=== PATIENT | female | born 1950 | race Caucasian/White ===

== ENCOUNTER → 2018-03-19 | Outpatient (CLI) | payer MEDICARE, OTHER ==
[2018-03-15 15:54] VITALS: BMI 27.5
[2018-03-19 12:04] VITALS: BP 196/89; PULSE 69; RESP 16
--- NOTE | 2018-03-19 12:58 | P.PAINCN ---
History of Present Illness - Reason for Consult Consult date: 03/19/18 Cervical radiofrequency ablation - Chief Complaint Neck pain - History of Present Illness Carina 67-year-old female who presents today as a new patient consult. She is presents today for evaluation for radiofrequency ablation of the cervical spine. She was sent here from another pain management physician after performing the cervical medial branch blocks. She has a history of cardiac dysfunction and has a pacemaker in place so they would prefer her having the procedure done in the hospital. She reports that she had medial branch blocks 2 with excellent relief of her neck and upper shoulder pain. She reports that her pain is worse with extension and flexion of the cervical spine as well as lateral sidebending. She denies any radicular symptoms going down her arms. She denies any weakness in her arms. She denies any numbness or tingling in her fingers. She also complains of lower lumbar spine pain. She's had this lumbar pain for many years. She's had back surgery in the past. She has continued pain in her lumbar spine with all ranges of motion. She denies any radicular symptoms going down the legs, she denies any red flag symptoms. She is on anticoagulation and has stopped the anticoagulation successfully multiple times for procedures on her lumbar and cervical spine. Review of Systems 12 point review of systems is done and is negative except as noted in the HPI Past Medical History Past Medical History: Atrial Fibrillation, Diabetes Mellitus, Myocardial Infarction (CA), Osteoarthritis (OA) Additional Past Medical History / Comment(s): chronic neck and back pain radiates suzie shoulders and arms,headaches,steroids Feb 2018 Last Myocardial Infarction Date:: unk History of Any Multi-Drug Resistant Organisms: None Reported Past Surgical History: Back Surgery, Heart Catheterization With Stent, Joint Replacement, Pacemaker Additional Past Surgical History / Comment(s): RIGHT KNEE replacement,pain procedures Past Anesthesia/Blood Transfusion Reactions: Postoperative Nausea & Vomiting ( PONV) Date of Last Stent Placement:: 2001 Type of Cardiac Device: Permanent Pacemaker Device Placement Date:: 2014 or 2015 Past Psychological History: Anxiety Additional Psychological History / Comment(s): R/T FAMILY STESSORS AT THIS TIME Smoking Status: Former smoker Past Alcohol Use History: None Reported Additional Past Alcohol Use History / Comment(s): QUIT SMOKING 1994, STARTED SMOKING 1973 Past Drug Use History: None Reported - Past Family History Sister(s) Family Medical History: Myocardial Infarction (CA) Mother Family Medical History: Cancer, Hypertension Brother(s) Family Medical History: Cancer, Myocardial Infarction (CA) Additional Family Medical History / Comment(s): CABG Father Family Medical History: AICD/Pacemaker Medications and Allergies Home Medications Medication Instructions Recorded Confirmed Type Atorvastatin Calcium [Lipitor] 40 mg PO DAILY 09/12/14 03/15/18 History Enalapril [Vasotec] 5 mg PO DAILY 09/12/14 03/15/18 History Ezetimibe [Zetia] 10 mg PO DAILY 09/12/14 03/15/18 History Glimepiride [Amaryl] 2 mg PO BID 09/12/14 03/15/18 History Metoprolol Succinate (ER) [Toprol 50 mg PO DAILY 09/12/14 03/15/18 History XL] Apixaban [Eliquis] 5 mg PO DAILY 03/15/18 03/15/18 History HYDROcodone/APAP 7.5-325MG [[place] 1 tab PO Q6HR PRN 03/15/18 03/19/18 History 7.5-325] metFORMIN HCL [Glucophage] 500 mg PO BID 03/15/18 03/15/18 History traMADol HCL [Ultram] 50 mg PO Q6HR PRN 03/15/18 03/19/18 History Allergies Allergy/AdvReac Type Severity Reaction Status Date / Time No Known Allergies Allergy Verified 03/19/18 11:50 Physical Exam Vitals: Vital Signs Pulse Resp BP 03/19/18 11:53 69 16 196/89 General: Awake and alert oriented 3 no distress Respiratory exam: No audible wheezing no accessory muscle usage Cardiovascular exam: regular rate, palpable bilateral pulses, no lower extremity edema Abdominal exam: No distention nontender to palpation Cervical spine: Normal alignment, Spurling's negative, facet loading positive bilateral. There is decreased range of motion in flexion and extension as well as lateral side bending of the neck. Lumbar spine: Loss of lumbar lordosis, normal alignment, tender to palpation over bilateral paraspinal muscles, facet loading is positive bilaterally. Straight leg raise is negative. Sacroiliac joints: Nontender to palpation, JOYCE is negative, Gaenselon negative Neuro exam: Normal sensation in bilateral upper extremities, deep tendon reflexes are 2+ bilateral upper extremities. Normal sensation in bilateral lower extremities. Deep tendon reflexes are 2+ in lower extremities Psych exam: Cooperative, appropriate mood Assessment and Plan Assessment: #1 cervical spondylosis without myelopathy #2 lumbar postlaminectomy syndrome #3 lumbar spondylosis without myelopathy Plan: Plan is to perform a cervical medial branch block on the left side at first and then repeated on the right side. 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 She is on anticoagulation and will need to stop that for at least 3 days. Patient does have a pacemaker but is not a defibrillator. I discussed with the patient the risks benefits and alternatives of doing this procedure. Patient is aware of the risks and benefits as well as the alternatives and is requesting to move forward with the procedure. PQRS Measure Charge Sheet PQRS Narrative: Smoking Status Former smoker Do You Want the Pneumonia No Vaccine AT THIS TIME? Blood Pressure 196/89 Pain Intensity [Bilateral 5 Posterior Neck] Scale Used Numeric (1 - 10) Hx Alcohol Use (MH) No Home Medications: Ambulatory Orders Atorvastatin Calcium [Lipitor] 40 mg PO DAILY 09/12/14 Enalapril [Vasotec] 5 mg PO DAILY 09/12/14 Ezetimibe [Zetia] 10 mg PO DAILY 09/12/14 Glimepiride [Amaryl] 2 mg PO BID 09/12/14 Metoprolol Succinate (ER) [Toprol XL] 50 mg PO DAILY 09/12/14 Apixaban [Eliquis] 5 mg PO DAILY 03/15/18 HYDROcodone/APAP 7.5-325MG [[place] 7.5-325] 1 tab PO Q6HR PRN 03/15/18 metFORMIN HCL [Glucophage] 500 mg PO BID 03/15/18 traMADol HCL [Ultram] 50 mg PO Q6HR PRN 03/15/18
== END ==
LOC: PNWHC3 11:42
PROVIDERS: ATTEND Hospitalist
DX: M47.812 Spondylosis without myelopathy or radiculopathy, cervical region (principal); M96.1 Postlaminectomy syndrome, not elsewhere classified; M47.816 Spondylosis without myelopathy or radiculopathy, lumbar region; E11.9 Type 2 diabetes mellitus without complications; I48.91 Unspecified atrial fibrillation; I21.9 Acute myocardial infarction, unspecified; M19.90 Unspecified osteoarthritis, unspecified site; Z87.891 Personal history of nicotine dependence; Z79.899 Other long term (current) drug therapy; Z79.84 Long term (current) use of oral hypoglycemic drugs; Z79.891 Long term (current) use of opiate analgesic
CPT/HCPCS: 99211

== ENCOUNTER 2018-04-03 06:50 | Day surgery (SDC) | payer MEDICARE, OTHER ==
[2018-03-30 16:04] VITALS: BMI 27.5
[~2018-04-03 06:50] MED LIST: SODIUM CHLORIDE 0.9% 500 ML 500 ML IV SCH
[2018-04-03 07:14] VITALS: TEMP 96.9
[2018-04-03] MEDS ORDERED: LACTATED RINGERS 1,000 ML IV ONE (07:23)
[2018-04-03] MEDS ORDERED: LIDOCAINE 1% 20 ML VIAL (10MG/ML) FOR IV START INTRADERMA ONE (07:24)
[2018-04-03 07:27] LABS: Glucose,Whole Blood 119 mg/dL (75-99)
--- NOTE | 2018-04-03 08:28 | P.PCN ---
Date of Procedure: 04/03/18 Procedure(s) Performed: PREOPERATIVE DIAGNOSIS: Cervical spondylosis with Facet Arthropathy without myelopathy. POSTOPERATIVE DIAGNOSIS: Cervical spondylosis with Facet Arthropathy without myelopathy. PROCEDURES: Radiofrequency thermocoagulation, Left C2 ,C3, C4, C5, medial branch with Fluroscopy [place] ( 4 Leveles ) ANESTHESIA: Local with Ropivacaine 0.5 % , moderate sedation with fentanyl 100 micrograms and Versed. 2 mg EBL: Minimal PROCEDURE INDICATION: The patient with neck pain secondary to cervical arthropathy who had more than 50% relief of her pain with previous diagnostic cervical medial branch block. PROCEDURE DESCRIPTION / TECHNIQUE: The patient was seen and identified in the preoperative area. Risks, benefits, complications, and alternatives were discussed with the patient, the patient agreed to proceed with the procedure and signed the consent. IV was started. Vital signs remained stable throughout the procedure. Patient was taken to the OR and time out was completed. The patient was placed in the prone position on the procedure table. A pillow was placed under the patient s chest to increase the cervical interlaminar space. The cervical area was prepped and draped in the usual sterile fashion. Critical pause was taken. Vital signs were closely monitored during the procedure. Conscious sedation was used during the procedure to decrease patients anxiety. Using cross-table lateral fluoroscopy, the centroid of the trapezoid of left C2 ,C3, C4, C5, were identified, marked, and localized with 1% lidocaine. Subsequently, a 20 gseen067-th radiofrequency cannula with a 10-mm active tip was advanced guided by fluoroscopy to the centroid of the trapezoid of Left C2 ,C3, C4, C5, Needle tip position was confirmed at the centroid of the trapezoids of Left C2 ,C3, C4, C5, with anteroposterior fluoroscopy. Each site then underwent sensory testing at 50 Hz and 0 to 1 volt and motor testing at 2 Hz and 0 to 3 volt with local stimulation, but no radicular symptoms down the arm. Thereafter Left C2 ,C3, C4,C5 sites underwent radiofrequency thermocoagulation at 80 degrees celsius for 90 seconds after injecting 0.5 ml of PF Ropivacaine 0.5 %. After thermocoagulation, 1 ml of the block solution containing Depo-Medrol 40 mg and 4 mL of preservative-free normal saline was injected at the Left C2 , C3, C4, C5, levels after negative aspiration of CSF and blood and with no paresthesias. Cannulas were retracted while injecting lidocaine 1% until the needle is out. Skin was cleansed and bandages were applied. COMPLICATIONS: No acute complications. DISPOSITION / PLANS: The patient was placed in a supine position and transferred to the recovery area in a stable condition for observation and was discharged from the recovery room after meeting discharge criteria. Home discharge instructions given to the patient by the staff. The patient was reexamined prior to discharge. The patient will schedule a follow up in the clinic in 2-4 weeks.
[2018-04-03] MEDS ORDERED: IV FLUID CONTINUATION 600 ML IV ONE (08:29)
[2018-04-03] MEDS ORDERED: hydrALAZINE HCL 20 MG/ML 1 ML VIAL IVP STA (08:57)
[2018-04-03 09:30] VITALS: PULSE 58
--- NOTE | 2018-04-03 09:34 | FL ---
EXAMINATION TYPE: FL guided pain mgmt statistic DATE OF EXAM: 04/03/2018 HISTORY: Flouroscopy time 12 seconds of fluoroscopy provided. IMPRESSION: 1. Fluoroscopy time.
[2018-04-03 09:49] VITALS: BP 134/64; RESP 18
== END 2018-04-03 09:51 | disposition home or self-care (01) ==
LOC: ORPAIN 06:50
PROVIDERS: ATTEND Specialist
DX: M47.812 Spondylosis without myelopathy or radiculopathy, cervical region (principal); M47.816 Spondylosis without myelopathy or radiculopathy, lumbar region; I48.91 Unspecified atrial fibrillation; I10 Essential (primary) hypertension; E11.9 Type 2 diabetes mellitus without complications; I25.2 Old myocardial infarction; Z95.0 Presence of cardiac pacemaker; Z79.01 Long term (current) use of anticoagulants
CPT/HCPCS: 64633; 64634; J2250; J0360; J1030; J3010; 99152; 99153

== ENCOUNTER 2018-06-13 06:41 | Day surgery (SDC) | payer MEDICARE, OTHER ==
[2018-06-01 15:50] VITALS: BMI 27.7
[2018-06-13 07:04] VITALS: TEMP 97
[2018-06-13] MEDS ORDERED: LIDOCAINE 1% 20 ML VIAL (10MG/ML) FOR IV START INTRADERMA ONE (07:04)
[2018-06-13] MEDS ORDERED: LACTATED RINGERS 1,000 ML IV ONE (07:04)
[2018-06-13 07:06] LABS: Glucose,Whole Blood 272 mg/dL (75-99)
[2018-06-13] MEDS ORDERED: ONDANSETRON 4 MG/2 ML VIAL IVP ONE (07:10)
[2018-06-13] MEDS ORDERED: INSULIN ASPART (NovoLOG) 100 UNIT/ML VIAL SQ ONE (07:11)
--- NOTE | 2018-06-13 07:58 | P.PCN ---
Date of Procedure: 06/13/18 Procedure(s) Performed: PREOPERATIVE DIAGNOSIS: Cervical spondylosis with Facet Arthropathy without myelopathy. POSTOPERATIVE DIAGNOSIS: Cervical spondylosis with Facet Arthropathy without myelopathy. PROCEDURES: Radiofrequency thermocoagulation, Right C2 ,C3, C4, C5, medial branch with Fluroscopy Guidence ( 4 Leveles ) ANESTHESIA: moderate sedation with fentanyl 100 micrograms and Versed. 2 mg EBL: Minimal PROCEDURE INDICATION: The patient with neck pain secondary to cervical arthropathy who had more than 50% relief of her pain with previous diagnostic cervical medial branch block we have done the left side RFA and she is her today to have the Right side done . PROCEDURE DESCRIPTION / TECHNIQUE: The patient was seen and identified in the preoperative area. Risks, benefits, complications, and alternatives were discussed with the patient, the patient agreed to proceed with the procedure and signed the consent. IV was started. Vital signs remained stable throughout the procedure. Patient was taken to the OR and time out was completed. The patient was placed in the prone position on the procedure table. A pillow was placed under the patient s chest to increase the cervical interlaminar space. The cervical area was prepped and draped in the usual sterile fashion. Critical pause was taken. Vital signs were closely monitored during the procedure. Conscious sedation was used during the procedure to decrease patients anxiety. Using cross-table lateral fluoroscopy, the centroid of the trapezoid of Right C2 , C3, C4, C5, were identified, marked, and localized with 1% lidocaine. Subsequently, a 20 [id number] radiofrequency cannula with a 10-mm active tip was advanced guided by fluoroscopy to the centroid of the trapezoid of Right C2 ,C3, C4, C5, Needle tip position was confirmed at the centroid of the trapezoids of Left C2 ,C3, C4, C5, with anteroposterior fluoroscopy. Each site then underwent sensory testing at 50 Hz and 0 to 1 volt and motor testing at 2 Hz and 0 to 3 volt with local stimulation, but no radicular symptoms down the arm. Thereafter the Right C2 , C3, C4, C5 sites underwent radiofrequency thermocoagulation at 80 degrees celsius for 90 seconds after injecting 0.5 ml of PF Ropivacaine 0.5 %. After thermocoagulation, 1 ml of the block solution containing 4 mL of preservative-free Ropivacaine 0.5 % was injected at the Right C2 , C3, C4, C5, levels after negative aspiration of CSF and blood and with no paresthesias. Cannulas were retracted while injecting lidocaine 1% until the needle is out. Skin was cleansed and bandages were applied. COMPLICATIONS: No acute complications. DISPOSITION / PLANS: The patient was placed in a supine position and transferred to the recovery area in a stable condition for observation and was discharged from the recovery room after meeting discharge criteria. Home discharge instructions given to the patient by the staff. The patient was reexamined prior to discharge. The patient will schedule a follow up in the clinic in 2-4 weeks. No steroid was used today ( Blood sugar >250 )
[2018-06-13] MEDS ORDERED: IV FLUID CONTINUATION 1,000 ML IV ONE (07:59)
[2018-06-13] MEDS ORDERED: SODIUM CHLORIDE 0.9% 500 ML 500 ML IV SCH (07:59)
[2018-06-13 08:01] VITALS: PULSE 84; RESP 16
[2018-06-13 08:14] LABS: Glucose,Whole Blood 264 mg/dL (75-99)
[2018-06-13 08:32] VITALS: BP 161/70
--- NOTE | 2018-06-13 10:11 | FL ---
Fluoroscopy HISTORY: Pain 16 seconds fluoroscopy time supplied to the referring clinician. 3 intraoperative C-arm images docum ent the procedure. See dictated report from anesthesia.
== END 2018-06-13 08:41 | disposition home or self-care (01) ==
LOC: ORPAIN 06:41
PROVIDERS: ATTEND Specialist
DX: M47.812 Spondylosis without myelopathy or radiculopathy, cervical region (principal); I10 Essential (primary) hypertension; E11.9 Type 2 diabetes mellitus without complications; Z95.0 Presence of cardiac pacemaker; Z79.01 Long term (current) use of anticoagulants
CPT/HCPCS: 64633; 64634 ×2; J2250; J2405; J3010; 99152; 99153

== ENCOUNTER → 2018-07-05 | Outpatient (CLI) | payer MEDICARE, OTHER ==
[2018-07-05 13:49] VITALS: BP 196/91; PULSE 77; RESP 16
--- NOTE | 2018-07-05 14:32 | P.PAINPG ---
Subjective Progress Note Date: 07/05/18 Principal diagnosis: Cervical spondylosis This a very pleasant 67-year-old woman with a history of intractable neck pain who recently underwent bilateral cervical radio frequency ablation. She reports that she is completely pain-free from her neck pain. She is quite happy with her results. She denies any new symptoms. Objective - Vital Signs Vital signs: Vital Signs Temp Pulse 77 07/05/18 13:44 Resp 16 07/05/18 13:44 BP 196/91 07/05/18 13:44 Pulse Ox 99 07/05/18 13:44 Intake & Output 07/04/18 07/05/18 07/05/18 18:59 06:59 18:59 Weight 67.132 kg - Exam General: The patient is alert and oriented. Patient is not sedated Patient answers all question appropriately. Cardiac: Heart is regular in rate and rhythm Respiratory: Clear to auscultation. No audible wheezes. Abdomen: Soft nontender nondistended. Musculoskeletal: She dentures no obvious focal neurologic or muscular skeletal deficits. Neurological: Reflexes are preserved and symmetric bilaterally. Assessment and Plan (1) Cervical spondylosis Narrative/Plan: The patient will follow up in our clinic on an as-needed basis. I did discuss with her that it is possible these nerves will regenerate her pain will return. If this occurs, we will repeat the radio frequency ablation. Current Visit: Yes Status: Acute Code(s): M47.812 - SPONDYLOSIS W/O MYELOPATHY OR RADICULOPATHY, CERVICAL REGION SNOMED Code(s): 887577484 Plan: Cervical spondylosis PQRS Measure Charge Sheet Measure #130: Documentation of Current Meds in Medical Chart: Patient's medications documented in chart Measure #226: Tobacco Use: Screen & Cessation Intervention: Pt not a tobacco user Measure #111: Pneumonia Vaccination: Pneumococcal vaccine administered or previously received Measure #47: Advance Care Plan: Advance care planning discussed & documented, plan or surrogate given Measure #412: Opioid Treatment Agreement: Documented signed opioid trtmnt agreemnt min once during opioid trtmnt Measure #408: Opioid Therapy Follow-up Evaluation: Patient had f/u eval minimum every 3 months during opioid therapy Measure #317: Preventitive Care & Scrn High Bld Press & F/U: Normal blood pressure, f/u not required Measure #128: Body Mass Index (BMI) Screening & Follow-up: BMI documented within normal parameters Measure #131: Pain Assessment & Follow-up: Pain positive & plan documented Measure #431: Unhealthy Alcohol Use Preventative Care & Scrn: Patient not identified as an unhealthy alcohol user PQRS Narrative: Smoking Status Former smoker Do You Want the Pneumonia No Vaccine AT THIS TIME? Blood Pressure 196/91 Pain Intensity [Bilateral Neck 0 ] Scale Used Numeric (1 - 10) Hx Alcohol Use (MH) No Home Medications: Ambulatory Orders Atorvastatin Calcium [Lipitor] 40 mg PO DAILY 09/12/14 Enalapril [Vasotec] 5 mg PO DAILY 09/12/14 Ezetimibe [Zetia] 10 mg PO DAILY 09/12/14 Glimepiride [Amaryl] 2 mg PO BID 09/12/14 Metoprolol Succinate (ER) [Toprol XL] 50 mg PO DAILY 09/12/14 Apixaban [Eliquis] 5 mg PO BID 03/15/18 HYDROcodone/APAP 7.5-325MG [[place] 7.5-325] 1 tab PO Q6HR PRN 03/15/18 metFORMIN HCL [Glucophage] 500 mg PO BID 03/15/18 traMADol HCL [Ultram] 50 mg PO Q6HR PRN 03/15/18 Controlled Substance Measures - Controlled Substance Measures Is patient prescribed a controlled substance at discharge?: No
== END | disposition home or self-care (01) ==
LOC: PNWHC3 13:30
PROVIDERS: ATTEND Pain Medicine Pain Medicine
DX: M47.812 Spondylosis without myelopathy or radiculopathy, cervical region (principal); Z87.891 Personal history of nicotine dependence; Z79.891 Long term (current) use of opiate analgesic
CPT/HCPCS: 99211

== ENCOUNTER → 2019-10-17 | Outpatient (CLI) | payer MEDICARE, OTHER ==
--- NOTE | 2019-10-17 12:21 | P.PAINPG ---
Subjective Progress Note Date: 10/17/19 This a very pleasant 68-year-old woman was last seen in our clinic in June 2018. She has been diagnosed with cervical spondylosis, she underwent cervical radiofrequency ablation at C2, C3, C4, C5left side done in March 2018 and right side done in May 2018. She had reported excellent benefit from these procedures. Today, she returns for follow-up. She reports 100% relief from these procedures, lasting more than a year. She reports that her pain has just started to return. She rates her pain as 5/10, located in the bilateral neck radiating to bilateral shoulders. Pain is dull, does not radiate into upper extremities, she denies numbness and tingling. Pain is worse on the left side. Pain is better with ice, heat, Tylenol and worse with changes in position. Review of systems is negative for chest pain, shortness of breath, new onset weakness, numbness/tingling, abdominal pain, malaise, fever, night sweats, chills, homicidal or suicidal ideation, or bowel or bladder incontinence. Objective Physical exam: Vitals: Reviewed in EMR GENERAL: Well appearing, in no acute distress PSYCH: Mood and affect is appropriate. Awake, alert, and oriented SKIN: Skin color, texture, turgor normal, no rashes or lesions HEENT: Normocephalic, atraumatic. EOM intact CV: No pedal edema RESP: Respirations are unlabored, no audible wheezing GI: Abdomen non-distended MUSCULOSKELETAL: Bilateral upper aextremity strength is normal and symmetric. No atrophy or tone abnormalities are noted. Neck: Tenderness to palpation over the cervical paraspinous muscles bilaterally. Spurling negative, cervical facet loading positive, More's sign negative. cervical spine range of motion is limited due to pain Extremities: Peripheral joint ROM is full and pain free without obvious instability or laxity in all four extremities. No edema or skin discolorations noted. NEUR: Bilateral upper lower extremity coordination and muscle stretch reflexes are physiologic and symmetric. NNo loss of sensation is noted. Assessment and Plan (1) Cervical spondylosis Plan: She has had excellent benefit from prior cervical radiofrequency ablation, she would be a good candidate for repeat cervical radiofrequency ablationC2, C3, C4, C5. We will start with the left side. 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 Also of note, she has a pacemaker in place. Follow-up: For above-mentioned procedure PQRS Measure Charge Sheet Measure #130: Documentation of Current Meds in Medical Chart: Patient's medications documented in chart Measure #226: Tobacco Use: Screen & Cessation Intervention: Pt not a tobacco user Measure #111: Pneumonia Vaccination: Pneumococcal vaccine NOT administered or previously received Measure #47: Advance Care Plan: Advance care planning discussed & documented, patient chose/unable to give Measure #412: Opioid Treatment Agreement: No documentation of signed opioid agreement Measure #408: Opioid Therapy Follow-up Evaluation: Patient had no f/u eval minimum every 3 months during opioid therapy Measure #317: Preventitive Care & Scrn High Bld Press & F/U: Pre-hypertensive or hypertensive, follow-up with primary care physician Measure #128: Body Mass Index (BMI) Screening & Follow-up: BMI documented within normal parameters Measure #131: Pain Assessment & Follow-up: Pain positive & plan documented Measure #431: Unhealthy Alcohol Use Preventative Care & Scrn: Patient not identified as an unhealthy alcohol user Objective - Vital Signs Vital signs: Intake & Output 10/16/19 10/17/19 10/17/19 18:59 06:59 18:59 Weight 66.678 kg PQRS Measure Charge Sheet PQRS Narrative: Smoking Status Former smoker Pain Intensity [Neck] 5 Hx Alcohol Use (MH) No Home Medications: Ambulatory Orders Atorvastatin Calcium [Lipitor] 40 mg PO DAILY 09/12/14 Enalapril [Vasotec] 5 mg PO DAILY 09/12/14 Ezetimibe [Zetia] 10 mg PO DAILY 09/12/14 Glimepiride [Amaryl] 2 mg PO BID 09/12/14 Metoprolol Succinate (ER) [Toprol XL] 50 mg PO DAILY 09/12/14 Apixaban [Eliquis] 5 mg PO BID 03/15/18 metFORMIN HCL [Glucophage] 500 mg PO BID 03/15/18 Hydrochlorothiazide [Hydrodiuril] 12.5 mg PO DAILY 10/16/19 Controlled Substance Measures - Controlled Substance Measures Is patient prescribed a controlled substance at discharge?: No
== END | disposition home or self-care (01) ==
LOC: PNWHC3 11:42
PROVIDERS: ATTEND Anesthesiology
DX: M47.812 Spondylosis without myelopathy or radiculopathy, cervical region (principal); Z87.891 Personal history of nicotine dependence; Z79.891 Long term (current) use of opiate analgesic; Z79.899 Other long term (current) drug therapy; Z79.84 Long term (current) use of oral hypoglycemic drugs
CPT/HCPCS: 99211

== ENCOUNTER 2019-12-03 07:59 | Day surgery (SDC) | payer MEDICARE, OTHER ==
[2019-11-26 14:50] VITALS: BMI 28.7
[2019-12-03] MEDS ORDERED: LACTATED RINGERS 1,000 ML IV ONE (08:56)
[2019-12-03] MEDS ORDERED: LIDOCAINE 1% (10MG/ML) FOR IV START INTRADERMA ONE (08:56)
[2019-12-03 09:03] LABS: Glucose,Whole Blood 181 mg/dL (75-99)
[2019-12-03 09:10] VITALS: RESP 16; TEMP 97.9
[2019-12-03] MEDS ORDERED: LIDOCAINE 4% (PF) 5 ML AMP ONE (09:39)
[2019-12-03] MEDS ORDERED: MIDAZOLAM 2 MG/2 ML VIAL ONE (09:39)
[2019-12-03] MEDS ORDERED: fentaNYL (PF) 50 MCG/ML 2 ML AMP ONE (09:39)
[2019-12-03] MEDS ORDERED: LIDOCAINE 1% INJ 10MG/ML (20 ML MDV) ONE (09:39)
[2019-12-03] MEDS ORDERED: LACTATED RINGERS 1,000 ML IV SCH (10:19)
[2019-12-03] MEDS ORDERED: IV FLUID CONTINUATION 750 ML IV ONE (10:19)
--- NOTE | 2019-12-03 10:31 | FL ---
EXAMINATION TYPE: FL guided pain mgmt statistic DATE OF EXAM: 12/03/2019 HISTORY: Fluoroscopy time 45 seconds of fluoroscopy provided. IMPRESSION: 1. Fluoroscopy time.
[2019-12-03 10:39] VITALS: BP 164/75; PULSE 60
--- NOTE | 2019-12-03 14:05 | P.PCN ---
Date of Procedure: 12/03/19 Description of Procedure: PREOPERATIVE DIAGNOSIS: Cervicalgia POSTOPERATIVE DIAGNOSIS: Same Surgeon: Mina Mack M.D. PROCEDURE PERFORMED: Cervical Medial Branch Radiofrequency Ablation, at the following levels: TON, C3, C4, C5 on the left side ANESTHESIA: Lidocaine 1% 5 mL, Moderate sedation with intravenous Versed and fentanyl, sedation time 24 minutes ESTIMATED BLOOD LOSS: Minimal Fluoroscopy was used for the procedure and images were saved in the radiology portion of the chart. PROCEDURE INDICATION: The patient with neck pain secondary to cervical facet arthropathy who had more than 50% relief of pain with previous radiofrequency ablation PROCEDURE DESCRIPTION / TECHNIQUE: The patient was seen and identified in the preoperative area. Risks, benefits, complications, including but not limited to risk of infection ,bleeding , allergic reactions to the medications and incomplete pain relief , and alternatives were discussed with the patient, the patient agreed to proceed with the procedure and signed the consent. IV was started. The operative site was marked. Patient was taken to the OR and time out was completed. The patient was placed in the prone position on the procedure table. The lumbar area was prepped and draped in the usual sterile fashion. . Vital signs were closely monitored during the procedure .IV sedation was used during the procedure to decrease patients anxiety. An AP fluoroscopic supervisor lace tearing film was taken to identify the dens, the C2, C3, C4, C5 vertebral bodies, and the waists of the articular pillars at the aforementioned levels. A pillar (caudal tilt) view was utilized to highlight the waists of the articular pillars at these levels. The skin was prepped with chlorhexidine and draped in the usual sterile fashion. The skin and subcutaneous tissue overlying the above levels were anesthetized using a 25-gauge 1-1/2-inch needle with 1% preservative free lidocaine for a total volume of 1 ml per level. An 20-gauge and 100 mm SMK needle with a 10 mm active tip was advanced, coaxially, in the pillar view until the needle tip was noted to slide into the groove of the articular pillar. A true lateral view was obtained and the needle tips were advanced to cover to the lateral aspect C2-3 joint line (TON), lateral aspect of the articular pillar at left C3, C4, and C5 for corresponding medial branch ablation. The needles were advanced until bony contact was felt and the tip of the SMK needle was confirmed to be in the groove of the left waist of the articular pillars at the aforementioned levels. The needle positions were confirmed with AP and lateral fluoroscopic views. Motor stimulation was then performed at 2 Hz and up to 2V with only paraspinal muscle contraction noted at each level and no upper extremity stimulation. At this point, after negative aspiration, Lidocaine 4% x 0.5 mL was injected at each level prior to radiofrequency ablation. Lesioning was then carried out at 85 degrees Celsius times 90 seconds with 2 cycles per level. Following lesioning the needles were removed. COMPLICATIONS: No acute complications. DISPOSITION / PLANS: The patient was placed in a supine position and transferred to the recovery area in a stable condition for observation and was discharged from the recovery room after meeting discharge criteria. Home discharge instructions given to the patient by the staff. The patient will follow up in clinic as needed
== END 2019-12-03 10:52 ==
LOC: ORPAIN 07:59
PROVIDERS: ATTEND Anesthesiology
DX: M47.812 Spondylosis without myelopathy or radiculopathy, cervical region (principal); Z79.01 Long term (current) use of anticoagulants
CPT/HCPCS: 64633; 64634 ×2; J2001 ×2; J2250; J3010; 99152; 99153

== ENCOUNTER → 2020-01-01 | Outpatient (CLI) | payer MEDICARE, OTHER ==
[2020-01-01 09:43] VITALS: BP 157/75; PULSE 87; RESP 14; TEMP 98.3
--- NOTE | 2020-01-01 10:07 | P.PN ---
Subjective Progress Note Date: 01/01/20 This is a pleasant 69-year-old lady with history of chronic neck pain and significant improvement in her pain after medial branch radiofrequency ablation on both sides of her cervical spine. She denies any pain at this point. She also denies any weakness or numbness in the upper extremities. She does take elequis us for a history of coronary artery disease and cardiac stent placement. Patient denies new-onset weakness, bowel/bladder incontinence, or any other signs or symptoms of cauda equina syndrome. There are no signs of acute intoxication, and no indications of medication diversion or overuse. In addition to above, 13-point review of systems is also negative for chest pain, shortness of breath, changes in vision, changes in hearing, new onset weakness, abdominal pain, diarrhea, extreme fatigue, malaise, fever, skin changes, homicidal or suicidal ideation, or bowel or bladder incontinence. Vital Signs: Reviewed in EMR Gen: AAOx3, NAD HEENT: PERRLA,hearing grossly normal Pulm: resp unlabored Neck: supple, trachea midline Neuro exam of the lower extremities: Within normal limits Normal range of motion of the cervical spine No tenderness in the cervical paravertebral musculature Neuro: CN II-XII grossly intact, Imaging: Reviewed in EMR/chart Assessment: Cervical spondylosis without myelopathy Coronary artery disease with treatment with eliquis Plan: 1. Explanation: Opioid and psychological risk scores were reviewed. Diagnoses, prognoses, and multiple treatment options including but not limited to physical therapy, interventional therapies, adjuvant medical therapies, narcotic medication therapies, and surgery were discussed with the patient and all questions were answered to the patient's satisfaction. 2. Opioid agreement: Patient does not use opioids 3. Counseling: The patient was counseled extensively on SMOKING CESSATION, BODY MASS INDEX, EXERCISE. Specifically, the patient was instructed regarding the importance of smoking cessation, obesity, and exercise in the context of both chronic pain and overall health. 4. Procedures: None at this time 5. Consultations: None 6. Investigations: None 7. Medications: None. Patient uses Tylenol occasionally for her pain 8. Disposition: Return to clinic as needed 9. Maps were reviewed and were appropriate. Objective - Vital Signs Vital signs: Vital Signs Temp 98.3 F 01/01/20 09:37 Pulse 87 01/01/20 09:37 Resp 14 01/01/20 09:37 BP 157/75 09/16/20 09:37 Pulse Ox 98 01/01/20 09:37
== END | disposition home or self-care (01) ==
LOC: PNWHC3 09:12
PROVIDERS: ATTEND Anesthesiology
DX: M47.812 Spondylosis without myelopathy or radiculopathy, cervical region (principal); I25.10 Atherosclerotic heart disease of native coronary artery without angina pectoris; Z79.01 Long term (current) use of anticoagulants; Z79.891 Long term (current) use of opiate analgesic
CPT/HCPCS: 99211